=== PATIENT | male | born 1940 | race Caucasian/White ===

== ENCOUNTER → 2018-01-26 | Outpatient (CLI) | payer MEDICARE ==
--- NOTE | 2018-01-26 14:34 | US ---
EXAMINATION TYPE: US kidneys/renal and bladder DATE OF EXAM: 01/26/2018 COMPARISON: NONE CLINICAL HISTORY: R31.0 Gross hematuria. Gross hematuria EXAM MEASUREMENTS: Right Kidney: 11.1 x 5.4 x 4.7 cm Left Kidney: 11.2 x 4.8 x 5.0 cm Post Void Residual Volume: 70.2 mL Right Kidney: Multiple cysts seen largest 2.6 x 2.4 x 2.6 cm. Left Kidney: Multiple cysts seen largest with a septation 7.7 x 6.5 x 8.7 cm. Bladder: anechoic with enlarged prostate seen pressing upon the urinary bladder. Bilateral Jets seen: Yes Normal Post Void Residual: No There is no evidence for hydronephrosis at this point in time. No nephrolithiasis is seen. The uri nary bladder is anechoic. Bilateral ureteral jets are seen. IMPRESSION: Multiple renal cysts are seen the largest contains a solitary internal thin septation. Th killian are favored to be benign. Further evaluation. Gross hematuria could be performed with CT urogram. No nephrolithiasis.
== END | disposition home or self-care (01) ==
LOC: RADUSWWP 13:21
PROVIDERS: ATTEND Urology
DX: N28.1 Cyst of kidney, acquired (principal); R97.20 Elevated prostate specific antigen [PSA]
CPT/HCPCS: 36415; 76770; 84153

== ENCOUNTER → 2019-12-27 | Outpatient (CLI) | payer MEDICARE ==
--- NOTE | 2019-12-27 12:34 | US ---
EXAMINATION TYPE: US venous doppler duplex LE LT DATE OF EXAM: 12/27/2019 11:33 AM COMPARISON: NONE CLINICAL HISTORY: 79-year-old male I80.9 LLE Phlebitis. Left knee pain SIDE PERFORMED: Left TECHNIQUE: The lower extremity deep venous system is examined utilizing real time linear array sonog pee[place]e with graded compression, doppler sonography and color-flow sonography. FINDINGS: VESSELS IMAGED: External Iliac Vein (EIV) Common Femoral Vein Deep Femoral Vein Greater Saphenous Vein * Femoral Vein Popliteal Vein Small Saphenous Vein * Proximal Calf Veins (* superficial vessels) Left Leg: Negative for DVT IMPRESSION: No evidence for DVT within the left lower extremity imaged from the groin to the upper calf.
== END | disposition home or self-care (01) ==
LOC: RADUSWWP 11:15
PROVIDERS: ATTEND Orthopaedic Surgery
DX: M25.562 Pain in left knee (principal); M79.662 Pain in left lower leg; M17.12 Unilateral primary osteoarthritis, left knee; I80.9 Phlebitis and thrombophlebitis of unspecified site

== ENCOUNTER 2024-02-17 14:47 | Observation (INO) | payer MEDICARE ==
[2024-02-17] MEDS: KETOROLAC 15 MG/ML 1 ML VIAL IVP STA (17:40)
[2024-02-17] MEDS: ORPHENADRINE 30 MG/ML 2 ML VIAL IVP STA (17:41)
[2024-02-17] MEDS: HYDROmorphone 1 MG/ML 1 ML SYRINGE IVP STA (18:28)
--- NOTE | 2024-02-17 18:45 | CT ---
EXAMINATION TYPE: CT lumbar spine wo con DATE OF EXAM: 02/17/2024 COMPARISON: None HISTORY: 83-year-old male Lower back pain TECHNIQUE: Contiguous axial scanning of the lumbar spine without IV contrast. Coronal and sagittal re constructions performed. CT DLP: 1355.6 mGycm Automated exposure control for dose reduction was used. FINDINGS: Moderate atherosclerotic changes and foraminal aorta with a lobulated fusiform areas of ectasia measu ring up to 2.5 cm. Bilateral renal cortical cysts measuring up to 1.8 cm. Mild to moderate degenerative change of the bilateral SI joints. There is DISH throughout extending down from the lower thoracic spine down to the L3 level. Moderate to severe degenerative disc disease L4-L5 and mild L5-S1. Advanced hypertrophic facet arthro kenneth lower lumbar spine. Vertebral body height and alignment are maintained. Changes result in moderate to severe focal spinal canal stenosis at L4-L5 and moderate right greater than left neural foraminal stenosis here. Mild to moderate overall narrowing of the spinal canal at L3-L4 and mild L5-S1. Given the vacuum is seen along the right paracentral posterior margin of the L4 vertebral body, there may be some and migrated disc material. MRI can be considered to further evaluate. IMPRESSION: 1. DISH EXTENDING FROM THE VISUALIZED LOWER THORACIC SPINE DOWN THROUGH THE L3 LEVEL. NO VERTEBRAL CO MPRESSION COLLAPSE OR MALALIGNMENT. 2. MODERATE TO SEVERE DEGENERATIVE DISC DISEASE L4-L5. BULGING DISC AND LIGAMENTUM FLAVUM THICKENING MAY CONTRIBUTE TO A MODERATE TO SEVERE FOCAL SPINAL CANAL STENOSIS HERE. MODERATE BILATERAL NEUROFORA THADDEUS STENOSIS RIGHT GREATER THAN LEFT. 3. VACUUM PHENOMENON TRACKING ALONG THE RIGHT PARACENTRAL ASPECT OF THE L4 VERTEBRAL BODY MAY REFLECT SOME EXTRUDED AND MIGRATED DISC MATERIAL. 4. MILD TO MODERATE NARROWING OF THE SPINAL CANAL AT L3-L4 AND MILD AT L5-S1. 5. 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
--- NOTE | 2024-02-17 19:42 | ED ---
Back Pain HPI - General Chief Complaint: Back Pain/Injury Stated Complaint: back pain Time Seen by Provider: 02/17/24 14:50 Source: patient, EMS - History of Present Illness Initial Comments: 83-year-old male with past medical history of chronic back pain who presents emergency department reporting back pain. He states that he goes for back injections every 3 months. He did have 1 on February 08. He states that since the injection the pain has gotten worse to the point where today he could not ambulate. Patient denies any trauma. States that the pain is 10 out of 10 and worse with any movement. States he could not sleep all night because of the pain. He normally does not need any assistance to walk while at home however going out and running errands the patient does use a walker. He follows with Dr. Nguyen. He denies any fevers. No neck or thoracic back pain. No numbness, tingling into his lower extremities. - Related Data Home Medications Medication Instructions Recorded Confirmed Eplerenone [Inspra] 100 mg PO BID 02/17/24 02/17/24 Losartan/Hydrochlorothiazide 1 tab PO DAILY 02/17/24 02/17/24 [Hyzaar 100-25 Tablet] Multivit-Min/FA/Lycopen/Lutein 1 tab PO DAILY 02/17/24 02/17/24 [Centrum Silver Tablet] Allergies Allergy/AdvReac Type Severity Reaction Status Date / Time No Known Allergies Allergy Verified 02/17/24 19:46 Review of Systems ROS Statement: Those systems with pertinent positive or pertinent negative responses have been documented in the HPI. ROS Other: All systems not noted in ROS Statement are negative. Past Medical History Past Medical History: Cancer, Hypertension Additional Past Medical History / Comment(s): skin cancer History of Any Multi-Drug Resistant Organisms: None Reported Past Surgical History: Appendectomy, Back Surgery, Orthopedic Surgery, Tonsillectomy Past Psychological History: No Psychological Hx Reported Smoking Status: Former smoker Past Alcohol Use History: Occasional Past Drug Use History: None Reported General Exam General appearance: alert, in no apparent distress Head exam: Present: atraumatic, normocephalic, normal inspection Eye exam: Present: normal appearance, PERRL, EOMI. Absent: scleral icterus, conjunctival injection, periorbital swelling ENT exam: Present: normal exam, mucous membranes moist Neck exam: Present: normal inspection. Absent: tenderness, meningismus, lymphadenopathy Respiratory exam: Present: normal lung sounds bilaterally. Absent: respiratory distress, wheezes, rales, rhonchi, stridor Cardiovascular Exam: Present: regular rate, normal rhythm, normal heart sounds. Absent: systolic murmur, diastolic murmur, rubs, gallop, clicks GI/Abdominal exam: Present: soft, normal bowel sounds. Absent: distended, tenderness, guarding, rebound, rigid Extremities exam: Present: normal inspection, full ROM, normal capillary refill. Absent: tenderness, pedal edema, joint swelling, calf tenderness Back exam: Present: paraspinal tenderness (L2-L5. minimal midline tenderness. 5/5 muscle strength in bilateral lower extermities to include hip flexors, knee extensors, ankle and great toe dorsiflexors and plantar flexors. Intact sensation over the medial, lateral and dorsal lower extremities) Neurological exam: Present: alert, oriented X3, CN II-XII intact Psychiatric exam: Present: normal affect, normal mood Skin exam: Present: warm, dry, intact, normal color. Absent: rash Course Vital Signs 02/17/24 02/17/24 02/17/24 14:48 18:30 22:18 Temperature 98.8 F 98.8 F Pulse Rate 87 75 Respiratory 16 19 Rate Blood Pressure 136/98 138/92 145/108 O2 Sat by Pulse 94 L 94 L Oximetry 02/17/24 23:23 Temperature Pulse Rate 74 Respiratory 16 Rate Blood Pressure 142/98 O2 Sat by Pulse 95 Oximetry Medical Decision Making - Medical Decision Making Was pt. sent in by a medical professional or institution (, PA, [employer]TAIN, urgent care, hospital, or jail...) When possible be specific @ -No Did you speak to anyone other than the patient for history (EMS, parent, family, police, friend...)? What history was obtained from this source @ -I spoke with daughter and Did you review nursing and triage notes (agree or disagree)? Why? @ -I reviewed and agree with nursing and triage notes Were old charts reviewed (outside hosp., previous admission, EMS record, old EKG, old radiological studies, urgent care reports/EKG's, jail records)? Report findings @ -No old charts were reviewed Differential Diagnosis (chest pain, altered mental status, abdominal pain women, abdominal pain men, vaginal bleeding, weakness, fever, dyspnea, syncope, headache, dizziness, GI bleed, back pain, seizure, CVA, palpatations, mental health, musculoskeletal)? @ -Differential Back Pain: Strain, zoster, cauda equina syndrome, epidural abscess, vertebral osteomyelitis, discitis, fracture, subluxation, disc herniation, DJD, spinal stenosis, dissection, AAA, pancreatitis, peptic ulcer disease, pyelonephritis, kidney stone, this is not meant to be an all-inclusive list. EKG interpreted by me (3pts min.). @ -Not done X-rays interpreted by me (1pt min.). @ -None done CT interpreted by me (1pt min.). @ -Yes and demonstrates herniated disks U/S interpreted by me (1pt. min.). @ -None done What testing was considered but not performed or refused? (CT, X-rays, U/S, labs)? Why? @ -None What meds were considered but not given or refused? Why? @ -None Did you discuss the management of the patient with other professionals (professionals i.e. , PA, [employer]TAIN, lab, RT, psych nurse, social work instructor, cafeteria manager, teacher, risk control officer, keycase assembler)? Give summary @ -Discussed case with Dr. Feldman who will admit patient Was smoking cessation discussed for >3mins.? @ -No Was critical care preformed (if so, how long)? @ -No Were there social determinants of health that impacted care today? How? (Homelessness, low income, unemployed, alcoholism, drug addiction, transportation, low edu. Level, literacy, decrease access to med. care, senior living, rehab)? @ -No Was there de-escalation of care discussed even if they declined (Discuss DNR or withdrawal of care, Hospice)? DNR status @ -No What co-morbidities impacted this encounter? (DM, HTN, Smoking, COPD, CAD, Cancer, CVA, ARF, Chemo, Hep., AIDS, mental health diagnosis, sleep apnea, morbid obesity)? @ -None Was patient admitted / discharged? Hospital course, mention meds given and route, prescriptions, significant lab abnormalities, going to OR and other pertinent info. @ -Upon arrival patient seen and evaluated in room 18. Thorough history and physical exam was performed. He has been given 100 mcg of fentanyl by EMS. This did not control his pain. He is given a dose of Norflex and morphine without any improvement. Patient is then given a dose of Dilaudid. CT is performed due to extent of pain which demonstrates multiple herniated disks. Patient is given a dose of Toradol. He continues to have no improvement in his pain and cannot ambulate. At this time I did recommend admission to Dr. Feldman with Dr. Nguyen to consult. Patient agreeable to this. Spoke with Dr. Feldman for the admission Undiagnosed new problem with uncertain prognosis? @ -No Drug Therapy requiring intensive monitoring for toxicity (Heparin, Nitro, Insulin, Cardizem)? @ -No Were any procedures done? @ -No Diagnosis/symptom? @ -Acute exacerbation of chronic low back pain, herniated disks, inability to ambulate Acute, or Chronic, or Acute on Chronic? @ -Acute on chronic Uncomplicated (without systemic symptoms) or Complicated (systemic symptoms)? @ -Complicated Side effects of treatment? @ -No Exacerbation, Progression, or Severe Exacerbation? @ -Yes Poses a threat to life or bodily function? How? (Chest pain, [place], MA, pneumonia, PE, COPD, DKA, ARF, appy, cholecystitis, CVA, Diverticulitis, Homicidal, Suicidal, threat to staff... and all critical care pts) @ -No - Lab Data Result diagrams: 02/18/24 05:59 02/18/24 05:59 Disposition Clinical Impression: Acute low back pain, Herniated disc Disposition: ADMITTED IP TO THIS [facility] Condition: Stable Is patient prescribed a controlled substance at d/c from ED?: No Time of Disposition: 19:42 Decision to Admit Reason: Admit from EC Decision Date: 02/17/24 Decision Time: 19:42
[2024-02-17] MEDS ORDERED: HYDROmorphone 1 MG/ML 1 ML SYRINGE IVP PRN (19:44)
[2024-02-17] MEDS ORDERED: NALOXONE 0.4 MG/ML 1 ML VIAL IV PRN (19:44)
[2024-02-17] MEDS: DOCUSATE 100 MG CAP PO SCH (22:03)
[2024-02-17 22:20] LABS: Basophils % (A) 0 %; Eosinophils # (A) 0.1 k/uL (0-0.7); Eosinophils % (A) 1 %; HCT 47.6 % (39.0-53.0); HGB 15.8 gm/dL (13.0-17.5); Lymphocytes # (A) 1.3 k/uL (1.0-4.8); Lymphocytes % (A) 11 %; MCH 29.5 pg (25.0-35.0); MCHC 33.1 g/dL (31.0-37.0); MCV 89.1 fL (80.0-100.0); Mean Platelet Volume 7.6; Monocytes # (A) 0.6 k/uL (0-1.0); Monocytes % (A) 5 %; Neutrophils # (A) 9.5 k/uL (1.3-7.7); Neutrophils % (A) 82 %; Platelet Count 182 k/uL (150-450); RBC 5.34 m/uL (4.30-5.90); RDW 14.1 % (11.5-15.5); WBC 11.5 k/uL (3.8-10.6)
[2024-02-17 22:27] LABS: Sodium 131 mmol/L (137-145)
[2024-02-17 22:28] LABS: ALT 13 U/L (4-49); AST 20 U/L (17-59); African American GFR (CKD) 85 (>60 ml/min/1.73 sqM); Albumin 4.1 g/dL (3.5-5.0); Alkaline Phosphatase 47 U/L (38-126); Anion Gap 0 mmol/L; Blood Urea Nitrogen 28 mg/dL (9-20); Calcium 9.6 mg/dL (8.4-10.2); Carbon Dioxide 31 mmol/L (22-30); Chloride 100 mmol/L (98-107); Glucose 93 mg/dL (74-99); Non-African American GFR(CKD) 73 (>60 ml/min/1.73 sqM); Potassium 4.9 mmol/L (3.5-5.1); Total Protein 6.4 g/dL (6.3-8.2)
[2024-02-18] MEDS: KETOROLAC 15 MG/ML 1 ML VIAL IVP PRN (00:40)
[2024-02-18 09:39] LABS: Blood Urea Nitrogen 28.8 mg/dL (9.0-27.0); Calcium 9.6 mg/dL (8.7-10.3); Carbon Dioxide 29.3 mmol/L (21.6-31.8); Chloride 98 mmol/L (96-109); Glucose 84 mg/dL (70-110); Potassium 4.4 mmol/L (3.5-5.5); Sodium 136 mmol/L (135-145)
[2024-02-18 09:43] LABS: Basophils # (A) 0.04 X 10*3/uL (0.00-0.10); Basophils % (A) 0.4 %; Eosinophils # (A) 0.09 X 10*3/uL (0.04-0.35); Eosinophils % (A) 0.9 %; HCT 47.4 % (39.6-50.0); HGB 15.8 g/dL (13.0-17.0); Lymphocytes # (A) 1.68 X 10*3/uL (0.90-5.00); MCH 29.6 pg (27.0-32.0); MCHC 33.3 g/dL (32.0-37.0); MCV 88.8 FL (80.0-97.0); Monocytes # (A) 0.73 X 10*3/uL (0.20-1.00); Monocytes % (A) 6.9 %; NRBC Per 100 WBC 0 X 10*3/uL (0.00-0.01); Platelet Count 189 X 10*3/uL (140-440); RBC 5.34 X 10*6/uL (4.40-5.60); RDW 14.3 % (11.5-14.5); WBC 10.52 X 10*3/uL (4.50-10.00)
[2024-02-18] MEDS ORDERED: hydrALAZINE HCL 20 MG/ML 1 ML VIAL IVP PRN (10:44)
[2024-02-18] MEDS: LOSARTAN-HCTZ 50-12.5 MG 1 EACH TAB PO SCH (11:29)
[2024-02-18] MEDS: SPIRONOLACTONE 25 MG TAB PO SCH (11:29)
[2024-02-18] MEDS: MULTIVITAMINS, THERA 1 EACH TAB PO SCH (11:29)
[2024-02-18] MEDS ORDERED: HYDROcodone/APAP 5-325MG 1 EACH TAB PO PRN (12:13)
--- NOTE | 2024-02-18 12:22 | P.CNOR ---
History of Present Illness - [facility] Consult date: 02/18/24 Consult reason: back pain History of present illness: The patient is an 83-year-old male who is well-known to our office with Dr. Nguyen who recently had a epidural steroid injection on February 08. He states that his pain was not relieved within a couple days of the injection and continued to worsen until yesterday where the pain was much worse. He presented to the emergency department via EMS due to his extreme pain. Today, the patient states that his pain is more controlled but still is very painful with certain movements. He is unable to ambulate due to the pain. He denies any increased numbness in his legs and feet but does have a history of neuropathy per the patient. Review of Systems Constitutional: Denies chills, Denies fatigue, Denies fever Cardiovascular: Denies chest pain, Denies shortness of breath Respiratory: Denies cough Gastrointestinal: Denies diarrhea, Denies nausea, Denies vomiting Musculoskeletal: Reports low back pain Past Medical History Past Medical History: Cancer, Hypertension Additional Past Medical History / Comment(s): skin cancer History of Any Multi-Drug Resistant Organisms: None Reported Past Surgical History: Appendectomy, Back Surgery, Orthopedic Surgery, Tonsillectomy Past Anesthesia/Blood Transfusion Reactions: No Reported Reaction Past Psychological History: No Psychological Hx Reported Smoking Status: Former smoker Past Alcohol Use History: Occasional Past Drug Use History: None Reported Medications and Allergies Home Medications Medication Instructions Recorded Confirmed Type Eplerenone [Inspra] 100 mg PO BID 02/17/24 02/17/24 History Losartan/Hydrochlorothiazide 1 tab PO DAILY 02/17/24 02/17/24 History [Hyzaar 100-25 Tablet] Multivit-Min/FA/Lycopen/Lutein 1 tab PO DAILY 02/17/24 02/17/24 History [Centrum Silver Tablet] Allergies Allergy/AdvReac Type Severity Reaction Status Date / Time No Known Allergies Allergy Verified 02/17/24 19:46 Physical Examination The patient is an 83-year-old male in no acute distress. He is alert and oriented x 3. Exam of the lumbar spine reveals no open wounds, dimples or abrasions. He is able to lift his legs off the bed with increased pain on the left side. EHL is intact and he has good dorsal and plantarflexion bilaterally. Calves are soft and nontender. Neurological and circulatory status is intact. Results CT performed on 02/17/2024 reveals moderate to severe degenerative disc disease of L3-4 and L5 with bulging disc and moderate to severe focal spinal stenosis. Moderate bilateral neural foraminal stenosis right greater than left. See CT report for full findings.. - Labs Labs: Abnormal Lab Results - Last 24 Hours (Table) 02/17/24 02/17/24 02/18/24 Range/Units 22:15 22:15 05:59 WBC 11.5 H 10.52 H (3.8-10.6) k/uL Immature Gran # 0.08 H (0.00-0.04) X 10*3/uL Neutrophils # 9.5 H 7.90 H (1.3-7.7) k/uL Sodium 131 L (137-145) mmol/L Carbon Dioxide 31 H (22-30) mmol/L BUN 28 H (9-20) mg/dL BUN/Creatinine Ratio (12.00-20.00) Ratio 02/18/24 Range/Units 05:59 WBC (3.8-10.6) k/uL Immature Gran # (0.00-0.04) X 10*3/uL Neutrophils # (1.3-7.7) k/uL Sodium (137-145) mmol/L Carbon Dioxide (22-30) mmol/L BUN 28.8 H (9-20) mg/dL BUN/Creatinine Ratio 28.80 H (12.00-20.00) Ratio H & H 02/17/24 02/18/24 Range/Units 22:15 05:59 Hgb 15.8 15.8 (13.0-17.5) gm/dL Hct 47.6 47.4 (39.0-53.0) % Result Diagrams: 02/18/24 05:59 02/18/24 05:59 Assessment and Plan (1) Acute low back pain Current Visit: Yes Status: Acute Code(s): M54.50 - LOW BACK PAIN, UNSPECIFIED SNOMED Code(s): 515913653 Plan: The clinical and CT findings were discussed with the patient and his at the bedside this afternoon. The case was discussed with Dr. Whitman. Continue pain control with IV Dilaudid, [place], and Flexeril have been added. We will also start the patient on Solu-Medrol 60 mg every 12 hours. We will continue to follow patient closely and make further recommendations depending on the patient's course.
[2024-02-18] MEDS: methylPREDNISolone SOD SUCCI 125 MG/2 ML VIAL IV SCH (13:50)
[2024-02-18] MEDS: HYDROcodone/APAP 5-325MG 1 EACH TAB PO PRN (13:51)
[2024-02-18] MEDS: EPLERENONE 50 MG PO SCH (20:47)
[2024-02-18] MEDS: ZOLPIDEM 5 MG TAB PO SCH (22:09)
[2024-02-19 01:24] VITALS: BP 127/82; PULSE 68; RESP 18; TEMP 97.8
[2024-02-19] MEDS: CYCLOBENZAPRINE 10 MG TAB PO PRN (05:17)
[2024-02-19] MEDS ORDERED: MULTIVITAMINS, THERA 1 EACH TAB ONE (08:01)
[2024-02-19] MEDS ORDERED: methylPREDNISolone SOD SUCCI 125 MG/2 ML VIAL ONE ×2 (08:02→21:55)
[2024-02-19] MEDS ORDERED: DOCUSATE 100 MG CAP ONE ×2 (08:03→21:55)
[2024-02-19] MEDS ORDERED: LOSARTAN-HCTZ 50-12.5 MG 1 EACH TAB ONE (16:00)
[2024-02-19] MEDS ORDERED: HYDROcodone/APAP 5-325MG 1 EACH TAB ONE (21:56)
[2024-02-19] MEDS ORDERED: ZOLPIDEM 5 MG TAB ONE (22:00)
[2024-02-20] MEDS ORDERED: MULTIVITAMINS, THERA 1 EACH TAB ONE (08:55)
[2024-02-20] MEDS ORDERED: DOCUSATE 100 MG CAP ONE (08:56)
[2024-02-20] MEDS ORDERED: methylPREDNISolone SOD SUCCI 125 MG/2 ML VIAL ONE (08:56)
[2024-02-20] MEDS ORDERED: HYDROcodone/APAP 5-325MG 1 EACH TAB ONE (18:23)
== END 2024-02-20 20:30 | disposition home or self-care (01) ==
LOC: EC 14:47 → 4SSUR 19:44
PROVIDERS: ADMIT Family Medicine; ATTEND Family Medicine
DX: M54.50 Low back pain, unspecified (principal); I10 Essential (primary) hypertension; Z85.828 Personal history of other malignant neoplasm of skin; Z87.891 Personal history of nicotine dependence; Z79.899 Other long term (current) drug therapy
CPT/HCPCS: 80053; 80048; 85025 ×2; 72131; J2360; J1170; J1885 ×2; J2919; 96374; 96375; 96376; 99285